=== PATIENT | female | born 1945 | race Caucasian/White ===

== ENCOUNTER → 2021-03-18 | Outpatient (CLI) | payer OTHER ==
[~2021-03-18] MED LIST: ALPRAZOLAM PO; BENICAR20 MG PO; GLUCOTROL5 MG PO; VICODIN 5-5001 EACH PO; VICTOZA0.6 MG/0.1 SQ
== END ==
LOC: M.CT 10:56
PROVIDERS: ATTEND Internal Medicine
DX: Z13.6 Encounter for screening for cardiovascular disorders (principal); I10 Essential (primary) hypertension; E11.49 Type 2 diabetes mellitus with other diabetic neurological complication; E78.5 Hyperlipidemia, unspecified; R91.1 Solitary pulmonary nodule; I25.10 Atherosclerotic heart disease of native coronary artery without angina pectoris